=== PATIENT | male | born 1995 | race Caucasian/White ===

== ENCOUNTER 2024-04-11 11:41 | Emergency (ER) | payer BC ==
[2024-04-11] MEDS: Doxycycline Monohydrate 100 MG Cap PO ONE (12:20)
[2024-04-11] MEDS: cefTRIAXone 2 GM in Sodium Chloride 0.9% 100 ML IV ONE (12:21)
[2024-04-11] MEDS: Sodium Chloride 0.9% 10 ML Syringe FLUSH PRN (12:22)
[2024-04-11 12:27] LABS: BASOPHILS PERCENT AUTO 0.4 % (0.0-1.0); EOSINOPHILS ABSOLUTE AUTO 0.1 K/mm3 (0.0-0.4); EOSINOPHILS PERCENT AUTO 0.8 % (0.0-6.0); HEMATOCRIT 39.4 % (42.0-52.0); HEMOGLOBIN 13.8 gm/dl (14.0-18.0); IMMATURE GRAN ABSOLUTE AUTO 0.02 K/mm3 (0.00-0.05); IMMATURE GRAN PERCENT AUTO 0.2 % (0.0-0.4); LYMPHOCYTES ABSOLUTE AUTO 1.3 K/mm3 (1.0-4.8); LYMPHOCYTES PERCENT AUTO 11.7 % (24.0-44.0); MEAN CORPUSCULAR HEMOGLOBIN 30.1 pg (28.0-32.0); MEAN CORPUSCULAR VOLUME 85.8 fl (83.0-99.0); MEAN PLATELET VOLUME 8.9 fl (9.4-12.4); MONOCYTES ABSOLUTE AUTO 1.1 K/mm3 (0.0-0.8); MONOCYTES PERCENT AUTO 9.9 % (0.0-8.0); NEUTROPHILS ABSOLUTE AUTO 8.3 K/mm3 (1.8-7.7); PLATELET COUNT,PLT 182 K/mm3 (150-400); RED BLOOD CELL COUNT 4.59 M/mm3 (4.52-5.90); WHITE BLOOD CELL COUNT,WBC 10.75 K/mm3 (3.9-11.3)
[2024-04-11 12:45] LABS: A/G RATIO 1.4 (1-2); ALBUMIN 4.2 g/dl (3.4-5.0); BILIRUBIN TOTAL 1.2 mg/dL (0.2-1.0); C-REACTIVE PROTEIN 6.25 mg/dL (<0.30); CALCIUM 8.6 mg/dL (8.5-10.1); CREATININE 1.2 mg/dL (0.7-1.3); EST CRCL DRUG DOSING (CG) 108.56 mL/min; PROTEIN TOTAL,TP 7.3 g/dl (6.4-8.2)
== END 2024-04-11 13:22 | disposition home or self-care (01) ==
LOC: JD.ED 11:41
DX: L03.115 Cellulitis of right lower limb (principal); Z79.899 Other long term (current) drug therapy
CPT/HCPCS: 36415; 80053; 85025; 86140; 96365; 99283; A9270; J0696; J3490